=== PATIENT | female | born 1940 | race Caucasian/White ===

== ENCOUNTER 2017-06-04 15:35 | Emergency (ER) | payer OTHER ==
[~2017-06-04 15:35] MED LIST: ADRENALINE CHL INJ IVP ONE
[2017-06-04] MEDS ORDERED: ADRENALINE CHL INJ IVP ONE ×3 (15:36→15:46)
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
[2017-06-04 16:14] LABS: BASOPHILS # (AUTO) 0.1 X10^3/uL (0.0-0.1); BASOPHILS % (AUTO) 0.7 % (0.2-1.0); EOSINOPHILS # (AUTO) 0.4 x10^3/uL (0.0-0.2); EOSINOPHILS % (AUTO) 2.5 % (0.9-2.9); HEMATOCRIT 34.7 % (36.0-47.0); HEMOGLOBIN 11.1 g/dL (12.0-16.0); LYMPHOCYTES # (AUTO) 9.5 X10^3/uL (1.3-2.9); LYMPHOCYTES % (AUTO) 61.3 % (21.0-51.0); MEAN CORPUSCULAR HEMOGLOBIN 30.4 pg (27.0-34.0); MEAN CORPUSCULAR HGB CONC 31.9 g/dL (33.0-35.0); MEAN CORPUSCULAR VOLUME 95.3 fL (80.0-100.0); MONOCYTES # (AUTO) 1.1 x10^3/uL (0.3-0.8); MONOCYTES % (AUTO) 6.8 % (0.0-13.0); NEUTROPHILS # (AUTO) 4.5 x10^3/uL (2.2-4.8); NEUTROPHILS % (AUTO) 28.7 % (42.0-75.0); PLATELET COUNT 98 X10^3/uL (150.0-450.0); RED BLOOD COUNT 3.64 X10^6/uL (3.5-5.4); RED CELL DISTRIBUTION WIDTH 13.4 % (11.6-16.5); WHITE BLOOD COUNT 15.5 X10^3/uL (3.6-10.0)
[2017-06-04 16:18] VITALS: BP 00/00; BMI 25.0
[2017-06-04 16:28] LABS: BAND NEUTROPHILS % 2 % (0-10)
[2017-06-04 16:29] LABS: PLATELET MORPHOLOGY COMMENT NORMAL (NORMAL)
[2017-06-04 16:46] LABS: ALANINE AMINOTRANSFERASE 59 Units/L (12-78); ALKALINE PHOSPHATASE 131 Units/L (46-116); BLOOD UREA NITROGEN 15 mg/dL (7-18); CALCIUM 9.4 mg/dL (8.5-10.1); CARBON DIOXIDE 24.2 mmol/L (21-32); CHLORIDE 107 mmol/L (98-107); CKMB % 1.3 % (<4); COR CA(FOR HYPOALB) 10.2 mg/dL (8.5-10.1); CREATINE KINASE 516 Units/L (26-192); CREATININE 1.31 mg/dL (0.55-1.02); GLUCOSE 98 mg/dL (65-99); MAGNESIUM 2.3 mg/dL (1.7-2.9); SODIUM 144 mmol/L (136-145); TOTAL PROTEIN 6.6 g/dL (6.4-8.2); TROPONIN I < 0.02 ng/mL (0-1.5); eGFR BLACK RACES 51 (>60); eGFR NON BLACK RACES 42 (>60)
[2017-06-04 17:06] LABS: ASPARTATE AMINO TRANSFERASE 157 Units/L (15-37)
[2017-06-04 17:07] LABS: CREATINE KINASE MB 6.7 ng/mL (0-4.0)
== END 2017-06-04 17:38 | disposition expired ==
LOC: ER 15:35 → EDBD 15:35 → ER 17:38
PROC: 5A12012 Performance of Cardiac Output, Single, Manual (ICD-10-PCS; principal; 2017-06-04)
DX: I46.9 Cardiac arrest, cause unspecified (principal); J93.83 Other pneumothorax; T14.8 Other injury of unspecified body region; V86.19XA Passenger of other special all-terrain or other off-road motor vehicle injured in traffic accident, initial encounter
CPT/HCPCS: 36415; 80053; 82550; 82553; 83735; 84484; 85025; 85610; 85730; 92950; 93041; 96365; 96374; 96375; 99285; 99291; A4222; J0170